=== PATIENT | female | born 1945 | race Caucasian/White ===

== ENCOUNTER 2016-10-28 11:25 | Inpatient (IN) | payer MEDICARE ==
[2016-10-28] MEDS ORDERED: Diltiazem 100 MG AdvVial ONE (11:34)
[2016-10-28] MEDS ORDERED: Sodium Chloride 0.9% 100 ML ONE (11:35)
[2016-10-28] MEDS ORDERED: Diltiazem 25 MG/5 ML SDV ONE (11:37)
[2016-10-28] MEDS ORDERED: Diltiazem 25 MG/5 ML SDV IVPUSH ONE (11:50)
[2016-10-28] MEDS ORDERED: Diltiazem 100 MG in Sodium Chloride 0.9% 100 ML IV SCH (11:53)
[2016-10-28 12:00] LABS: CHLORIDE,CL 106 mEq/L (98-106); SODIUM,NA 144 mEq/L (136-145)
[2016-10-28] MEDS ORDERED: Levofloxacin/Dextrose 5%-Water 500 MG in Premix Bag 1 BAG IV SCH (12:00)
--- NOTE | 2016-10-28 12:05 | EDM.PDOC ---
ED HPI GENERAL MEDICAL PROBLEM - General Chief Complaint: Respiratory Problem Stated Complaint: cough Time Seen by Provider: 10/28/16 12:00 - History of Present Illness INITIAL COMMENTS - FREE TEXT/NARRATIVE: patient presents to ER co of cough and difficulty breathing. EKG show A-fib with RVR of 211. Duration: Hour(s): Location: Reports: Chest Severity: Severe Improves with: Reports: None Worsens with: Reports: None Associated Symptoms: Reports: No Other Symptoms - Related Data Allergies Allergy/AdvReac Type Severity Reaction Status Date / Time clarithromycin [From Biaxin] Allergy Cannot Verified 03/09/15 15:14 Remember codeine phosphate Allergy Cannot Verified 03/09/15 15:14 [From Brontex] Remember guaifenesin [From Brontex] Allergy Cannot Verified 03/09/15 15:14 Remember Penicillins Allergy Rash Verified 03/09/15 15:14 prednisone Allergy Cannot Verified 03/09/15 15:14 Remember Home Meds: Home Meds Albuterol [Proair HFA] 1 - 2 puff INH Q4H PRN 04/21/14 [History] Aspirin [Halfprin] 81 mg PO DAILY 03/09/15 [History] Cholecalciferol (Vitamin D3) [Vitamin D] 1 cap PO DAILY 03/09/15 [History] Multivitamin [Multivitamins] 1 cap PO DAILY 03/09/15 [History] metFORMIN HCl [Metformin HCl ER] 1,000 mg PO DAILY 03/09/15 [History] Estradiol [Estradiol] 0.5 mg PO DAILY 10/28/16 [History] Montelukast Sodium 10 mg PO DAILY 10/28/16 [History] Social & Family History - Tobacco Use Smoking Status *Q: Never Smoker - Recreational Drug Use Recreational Drug Use: No ED ROS GENERAL - Review of Systems Review Of Systems: ROS reveals no pertinent complaints other than HPI. ED EXAM, GENERAL - Physical Exam Exam: See Below Free Text/Narrative:: patient placed on monitor, HR = 211 Afib. Cardiazem 15 mg given slow IV push with cardiazem drip started. HR responds within 5 minutes HR now 115 irregular Exam Limited By: No Limitations General Appearance: Alert, WD/WN Ears: Normal External Exam Nose: Normal Inspection Throat/Mouth: Normal Inspection Head: Atraumatic Neck: Normal Inspection Respiratory/Chest: Crackles, Rales, Rhonchi, Wheezing Cardiovascular: Normal Peripheral Pulses GI/Abdominal: Normal Bowel Sounds (Female) Exam: Normal External Exam Rectal (Female) Exam: Normal Exam Back Exam: Normal Inspection Extremities: Normal Inspection Neurological: Alert, Oriented Psychiatric: Normal Affect Skin Exam: Warm, Dry, Intact Course - Orders/Labs/Meds Orders: Active Orders 24 hr Category Date Time Status Chest 1V Frontal [CR] Stat Exams 10/28/16 11:31 Taken Levofloxacin/Dextrose 5%-Water [Levaquin in D5W 500 MG/ Med 10/28/16 12:00 Ordered 100 ML] 500 mg Premix Bag 1 bag IV Q24H cefTRIAXone [Rocephin] Med 10/28/16 12:00 Ordered 1 gm IVPUSH Q24H Labs: Laboratory Tests 10/28/16 10/28/16 Range/Units 11:31 11:31 WBC 12.7 H (5.0-10.0) 10^3/uL RBC 4.90 (4.00-5.50) 10^6/uL Hgb 14.1 (12.0-16.0) g/dL Hct 43.8 (37.0-47.0) % MCV 89.4 (82.0-94.0) fL MCH 28.8 (27.0-32.0) pg MCHC 32.2 L (33.0-38.0) g/dL RDW Coeff of Pepper 14.6 (11.0-15.0) % Plt Count 299 (150-400) 10^3/uL Neut % (Auto) 81.2 (35-85) % Lymph % (Auto) 11.3 (10-55) % [place] % (Auto) 4.1 (0-16) % Eos % (Auto) 3.2 (0-5) % Baso % (Auto) 0.2 (0-3) % Neut # (Auto) 10.30 H (1.80-7.00) 10^3/uL Lymph # (Auto) 1.44 (1.00-4.80) 10^3/uL [place] # (Auto) 0.52 (0.00-0.80) 10^3/uL Eos # (Auto) 0.40 (0.00-0.45) 10^3/uL Baso # (Auto) 0.03 10^3/uL Sodium 144 (136-145) mEq/L Potassium 4.0 (3.5-5.0) mEq/L Chloride 106 (98-106) mEq/L Carbon Dioxide 26 (21-32) mmol/L BUN 16 (7-18) mg/dL Creatinine 0.9 (0.6-1.0) mg/dL Est Cr Clr Drug Dosing TNP Estimated GFR (MDRD) > 60 (>=60) mL/min Glucose 157 H D (75-99) mg/dL Calcium 9.1 (8.4-10.1) mg/dL Total Bilirubin 0.5 (0.0-1.0) mg/dL AST 19 (15-37) U/L ALT 25 (12-78) U/L Alkaline Phosphatase 89 (46-116) U/L Lactate Dehydrogenase 127 (100-190) U/L Creatine Kinase 71 (21-215) U/L Troponin I 0.041 (0.00-0.06) ng/mL C-Reactive Protein 2.8 H (0.2-0.8) mg/dL Total Protein 7.3 (6.4-8.2) g/dL Albumin 3.6 (3.4-5.0) g/dL Meds: Medications Discontinued Medications Generic Name Dose Route Start Last Admin Trade Name Dre PRN Reason Stop Dose Admin Diltiazem HCl Confirm 10/28/16 11:34 Cardizem Administered 10/28/16 11:35 Dose 100 mg .ROUTE .STK-MED ONE Diltiazem HCl Confirm 10/28/16 11:37 Diltiazem Administered 10/28/16 11:38 Dose 25 mg .ROUTE .STK-MED ONE Sodium Chloride Confirm 10/28/16 11:35 Normal Saline Administered 10/28/16 11:36 Dose 100 mls @ as directed .ROUTE .STK-MED ONE Departure - Departure Time of Disposition: 12:05 Disposition: Admitted As Inpatient 66 Clinical Impression: A-fib, Pneumonia - Discharge Information Forms: ED Department Discharge - My Orders Last 24 Hours: My Active Orders 10/28/16 11:31 Chest 1V Frontal [CR] Stat 10/28/16 12:00 Levofloxacin/Dextrose 5%-Water [Levaquin in D5W 500 MG/100 ML] 500 mg Premix Bag 1 bag IV Q24H cefTRIAXone [Rocephin] 1 gm IVPUSH Q24H - Assessment/Plan Last 24 Hours: My Active Orders 10/28/16 11:31 Chest 1V Frontal [CR] Stat 10/28/16 12:00 Levofloxacin/Dextrose 5%-Water [Levaquin in D5W 500 MG/100 ML] 500 mg Premix Bag 1 bag IV Q24H cefTRIAXone [Rocephin] 1 gm IVPUSH Q24H
[2016-10-28] MEDS: cefTRIAXone 1 GM Vial IVPUSH SCH ×2 (12:15→13:27)
[2016-10-28] MEDS ORDERED: Non-Formulary Medication 1 Each (Cetirizine Hcl [Zyrtec] 10 MG) PO PRN (12:17)
[2016-10-28] MEDS ORDERED: Levalbuterol HCl 1.25 MG/3 ML Neb NEB ONE (12:18)
[2016-10-28] MEDS ORDERED: Metoprolol Tartrate 25 MG Tab PO SCH (12:30)
[2016-10-28] MEDS ORDERED: Enoxaparin 60 MG/0.6 ML Syringe SUBCUT SCH (12:30)
[2016-10-28] MEDS ORDERED: cefTRIAXone 1 GM Vial IVPUSH SCH (12:30)
[2016-10-28] MEDS: Levalbuterol HCl 1.25 MG/3 ML Neb NEB SCH ×3 (13:42→15:40)
[2016-10-28] MEDS ORDERED: Atropine 0.1 MG/ML 10 ML Syringe IVPUSH ONE (14:15)
[2016-10-28] MEDS ORDERED: Ondansetron 4 MG/2 ML SDV ONE (14:51)
[2016-10-28] MEDS ORDERED: Midazolam 1 MG/ML 2 ML SDV ONE (14:55)
[2016-10-28] MEDS: Sodium Chloride 0.9% 1,000 ML IV SCH ×2 (15:00→15:39)
[2016-10-28] MEDS ORDERED: Ondansetron 4 MG/2 ML SDV IVPUSH PRN (15:00)
[2016-10-28] MEDS: DOPamine/Dextrose 5%-Water 400 MG/250 ML BAG ONE ×2 (15:21→17:00)
[2016-10-28] MEDS ORDERED: DOPamine/Dextrose 5%-Water 400 MG/250 ML BAG IV SCH (15:30)
[2016-10-28 15:38] VITALS: BP 88/37
--- NOTE | 2016-10-28 15:46 | PCM.PN ---
- General Info Date of Service: 10/28/16 Admission Dx/Problem (Free Text): Responded to the hospital after nursing found patient badycardic, and then asytsole for a short period. by the time I responded to the hospital the patient was awake and in a junctional rythm of 40 bpm. she was hypotensive at the time. We were unable to capture her HR by external pacer. 0.5 cc atropine given Iv. 700 cc ns given IV bolus. Dopamine drip started at 5 mc/kg.min for b [ support. BP responded quickly to pressers. Patient placed on Non-rebrether O2 sat 88% I spoke with Dr. Amin at [facility] in [place], he agreed to accept patient in transfer for further workup. Arrangements are made for helicopter transer to [place]. Patient is improving, her BP is much better and her HR is now 62bpm. O2 sat at 91%. Functional Status: Reports: pain controlled - Review of Systems General: Reports: No Symptoms HEENT: Reports: no symptoms Pulmonary: Reports: no symptoms Cardiovascular: Reports: No Symptoms Gastrointestinal: Reports: No symptoms Genitourinary: Reports: no symptoms Skin: Reports: no symptoms - Patient Data Vitals - most recent: Last Vital Signs Temp 96.9 F 10/28/16 12:13 Pulse 70 10/28/16 13:41 Resp 16 10/28/16 12:13 BP 129/63 10/28/16 13:41 Pulse Ox 96 10/28/16 12:38 Weight - most recent: 203 lb 6.4 oz Lab Results last 24 hrs: Laboratory Results - last 24 hr 10/28/16 Range/Units 14:50 Troponin I 0.154 H (0.00-0.06) ng/mL Med Orders - Current: Current Medications Ceftriaxone Sodium (Rocephin) 1 gm IVPUSH Q12H [facility] Last Admin: 10/28/16 13:26 Dose: Not Given Enoxaparin Sodium (Lovenox) 60 mg SUBCUT Q12H [facility] Last Admin: 10/28/16 13:41 Dose: 60 mg Levofloxacin/Dextrose 500 mg/ (Premix) 100 mls @ 100 mls/hr IV Q24H [facility] Last Admin: 10/28/16 12:23 Dose: 100 mls/hr Sodium Chloride (Normal Saline) 1,000 mls @ 75 mls/hr IV ASDIRECTED CH[facility]Y Dopamine HCl/Dextrose (Dopamine In D5w 400 Mg/250 Ml) 400 mg in 250 mls @ 17.299 mls/hr IV TITRATE [facility]; 5 MCG/KG/MIN PRN Reason: Protocol Levalbuterol HCl (Xopenex) 1.25 mg NEB Q4H [facility] Last Admin: 10/28/16 13:42 Dose: 1.25 mg Metoprolol Tartrate (Lopressor) 75 mg PO Q12H [facility] Last Admin: 10/28/16 13:41 Dose: 75 mg Montelukast Sodium (Singulair) 10 mg PO DAILY [facility] Non-Formulary Medication (Cetirizine Hcl [Zyrtec]) 10 mg PO DAILY PRN PRN Reason: Allergies Non-Formulary Medication (Estradiol [Estradiol]) 0.5 mg PO DAILY [facility] Non-Formulary Medication (Multivitamin [Multivitamins]) 1 cap PO DAILY [facility] Discontinued Medications Ceftriaxone Sodium (Rocephin) 1 gm IVPUSH Q24H [facility] Diltiazem HCl (Cardizem) Confirm Administered Dose 100 mg .ROUTE .STK-MED ONE Stop: 10/28/16 11:35 Diltiazem HCl (Diltiazem) Confirm Administered Dose 25 mg .ROUTE .STK-MED ONE Stop: 10/28/16 11:38 Sodium Chloride (Normal Saline) Confirm Administered Dose 100 mls @ as directed .ROUTE .STK-MED ONE Stop: 10/28/16 11:36 Dopamine HCl/Dextrose (Dopamine In D5w 400 Mg/250 Ml) Confirm Administered Dose 400 mg in 250 mls @ as directed .ROUTE .STK-MED ONE Stop: 10/28/16 15:22 Levalbuterol HCl (Xopenex) 1.25 mg NEB ONETIME ONE Stop: 10/28/16 12:19 Last Admin: 10/28/16 13:26 Dose: Not Given Midazolam HCl (Versed 1 Mg/Ml) Confirm Administered Dose 2 mg .ROUTE .STK-MED ONE Stop: 10/28/16 14:56 Ondansetron HCl (Zofran) Confirm Administered Dose 4 mg .ROUTE .STK-MED ONE Stop: 10/28/16 14:52 - Problem List Review Problem List Initiated/Reviewed/Updated: Yes - My Orders Last 24 Hours: My Active Orders 10/28/16 12:40 Cardiac Monitoring [RC] . DIRECTED 10/28/16 15:30 DOPamine/Dextrose 5%-Water [DOPamine in D5W 400 MG/250 ML] 400 mg in 250 ml IV TITRATE
--- NOTE | 2016-10-28 19:03 | PCM.DCSUM1 ---
Discharge Summary - Hospital Course Free Text/Narrative:: Patient is to be transferred to [facility] in [place] due to bradycardia, hypotension, and a period of asystole. she will be accepted by Dr. Amin with cardiology and admitted to ICU with a dopamine infusion for bp support. HPI Initial Comments: Patient presented to Er with cough and sob. she was noted to hav a-fib with RVR with a rate of 211. she was treated with IV cardiazem, and her hr stabelized fairly quickly. she was also found to have pneumonia, and antibiotic therapy was started as well. After starting on PO metoprolol the patient converted to a sinut rythnm of 85, and Cardizem drip was D/c. [place]. 30 mnutes later the patient became bradycardic HR=48-50. she was asymptomatic at this time, and her bp was 128/78. About an hour later she decided to get up to use the restroom, and nursing staff states that when she sat up on the side of the bed she became faint and passed out. Cardiac monotor shows that she became bradycardic and went asystole for a short period. when I got to the hospital the patient was awake, HR was 40 junctional, she was awake and responding to commands. She was hypotensive, and was give a fluid bolus of 600 cc. a dpamine infusion was started at 5 mc/kg/min for bp support. Arrangements were then made for transport to [place] via helicopter. Vs are stable at this point HR 67 sr, bp 125/62, O2 sat 90% on NRB. patient denies any pain at this time. Brief History: Pateint initially presented to the Er with cough and SOB, she thought she might have pneumonia. - Discharge Data Discharge Date: 10/28/16 Discharge Disposition: DC/Tfer to Acute Hospital 02 Condition: Stable - Discharge Plan Home Medications: Home Meds Albuterol [Proair HFA] 1 - 2 puff INH Q4H PRN 04/21/14 [History] Aspirin [Halfprin] 81 mg PO DAILY 03/09/15 [History] Cholecalciferol (Vitamin D3) [Vitamin D] 1 cap PO DAILY 03/09/15 [History] Multivitamin [Multivitamins] 1 cap PO DAILY 03/09/15 [History] metFORMIN HCl [Metformin HCl ER] 1,000 mg PO DAILY 03/09/15 [History] Cetirizine HCl [Zyrtec] 10 mg PO DAILY PRN 10/28/16 [History] Estradiol [Estradiol] 0.5 mg PO DAILY 10/28/16 [History] Montelukast Sodium 10 mg PO DAILY 10/28/16 [History] Forms: ED Department Discharge - Patient Data Vitals - Most Recent: Last Vital Signs Temp 96.9 F 10/28/16 12:13 Pulse 48 L 10/28/16 15:23 Resp 30 H 10/28/16 15:23 BP 88/37 L 10/28/16 15:23 Pulse Ox 89 L 10/28/16 15:23 Weight - Most Recent: 203 lb 6.4 oz I&O - Last 24 hours: Intake & Output 10/28/16 10/28/16 10/28/16 06:59 14:59 22:59 Intake Total 0 Balance 0 Lab Results - Last 24 hrs: Laboratory Results - last 24 hr 10/28/16 Range/Units 14:50 Troponin I 0.154 H (0.00-0.06) ng/mL Med Orders - Current: Current Medications Ceftriaxone Sodium (Rocephin) 1 gm IVPUSH Q12H [facility] Last Admin: 10/28/16 13:26 Dose: Not Given Enoxaparin Sodium (Lovenox) 60 mg SUBCUT Q12H [facility] Last Admin: 10/28/16 13:41 Dose: 60 mg Levofloxacin/Dextrose 500 mg/ (Premix) 100 mls @ 100 mls/hr IV Q24H [facility] Last Admin: 10/28/16 12:23 Dose: 100 mls/hr Sodium Chloride (Normal Saline) 1,000 mls @ 75 mls/hr IV ASDIRECTED [facility]Y Last Admin: 10/28/16 15:39 Dose: 75 mls/hr Dopamine HCl/Dextrose (Dopamine In D5w 400 Mg/250 Ml) 400 mg in 250 mls @ 17.299 mls/hr IV TITRATE CHERRY; 5 MCG/KG/MIN PRN Reason: Protocol Last Admin: 10/28/16 15:23 Dose: 5 mcg/kg/min, 17.299 mls/hr Diltiazem HCl 100 mg/ Sodium (Chloride) 100 mls @ 10 mls/hr IV TITRATE CHERRY; 10 MG/HR PRN Reason: Protocol Last Admin: 10/28/16 11:53 Dose: 10 mg/hr, 10 mls/hr Levalbuterol HCl (Xopenex) 1.25 mg NEB Q4H [facility] Last Admin: 10/28/16 15:40 Dose: Not Given Metoprolol Tartrate (Lopressor) 75 mg PO Q12H [facility] Last Admin: 10/28/16 13:41 Dose: 75 mg Montelukast Sodium (Singulair) 10 mg PO DAILY [facility]Y Non-Formulary Medication (Cetirizine Hcl [Zyrtec]) 10 mg PO DAILY PRN PRN Reason: Allergies Non-Formulary Medication (Estradiol [Estradiol]) 0.5 mg PO DAILY [facility] Non-Formulary Medication (Multivitamin [Multivitamins]) 1 cap PO DAILY [facility] Ondansetron HCl (Zofran) 4 mg IVPUSH Q6H PRN PRN Reason: Nausea Last Admin: 10/28/16 15:00 Dose: 4 mg Discontinued Medications Atropine Sulfate (Atropine 0.1 Mg/Ml) 0.5 mg IVPUSH ONETIME ONE Stop: 10/28/16 14:16 Last Admin: 10/28/16 14:16 Dose: 0.5 mg Ceftriaxone Sodium (Rocephin) 1 gm IVPUSH Q24H [facility] Last Admin: 10/28/16 12:15 Dose: 1 gm Diltiazem HCl (Cardizem) Confirm Administered Dose 100 mg .ROUTE .STK-MED ONE Stop: 10/28/16 11:35 Last Admin: 10/28/16 15:24 Dose: Not Given Diltiazem HCl (Diltiazem) Confirm Administered Dose 25 mg .ROUTE .STK-MED ONE Stop: 10/28/16 11:38 Last Admin: 10/28/16 15:24 Dose: Not Given Diltiazem HCl (Diltiazem) 15 mg IVPUSH ONETIME ONE Stop: 10/28/16 11:51 Last Admin: 10/28/16 11:50 Dose: 15 mg Sodium Chloride (Normal Saline) Confirm Administered Dose 100 mls @ as directed .ROUTE .STK-MED ONE Stop: 10/28/16 11:36 Last Admin: 10/28/16 15:22 Dose: 10 ml Dopamine HCl/Dextrose (Dopamine In D5w 400 Mg/250 Ml) Confirm Administered Dose 400 mg in 250 mls @ as directed .ROUTE .STK-MED ONE Stop: 10/28/16 15:22 Last Admin: 10/28/16 17:00 Dose: Not Given Levalbuterol HCl (Xopenex) 1.25 mg NEB ONETIME ONE Stop: 10/28/16 12:19 Last Admin: 10/28/16 13:26 Dose: Not Given Midazolam HCl (Versed 1 Mg/Ml) Confirm Administered Dose 2 mg .ROUTE .STK-MED ONE Stop: 10/28/16 14:56 Last Admin: 10/28/16 15:42 Dose: Not Given Ondansetron HCl (Zofran) Confirm Administered Dose 4 mg .ROUTE .STK-MED ONE Stop: 10/28/16 14:52 Last Admin: 10/28/16 15:43 Dose: Not Given *Q Meaningful Use (DIS) - VTE *Q VTE Criteria *Q: - Stroke *Q Stroke Criteria *Q: - AMI *Q AMI Criteria *Q:
[2016-10-29] MEDS ORDERED: Montelukast 10 MG Tab PO SCH (08:00)
[2016-10-29] MEDS ORDERED: Non-Formulary Medication 1 Each (Multivitamin [Multivitamins] 1 CAP) PO SCH (08:00)
[2016-10-29] MEDS ORDERED: ESTRADIOL 0.5 MG PO SCH (08:00)
== END 2016-10-28 16:20 | DRG 308 ==
LOC: CC.ED 11:25 → CC.MS 12:11 → UNDOADMIN 12:38 → CC.MS 12:38 → UNDODISIN 16:20
PROVIDERS: ADMIT Nurse Practitioner Family; ATTEND Nurse Practitioner Family
DX: I48.91 Unspecified atrial fibrillation (principal); J18.9 Pneumonia, unspecified organism; Z79.82 Long term (current) use of aspirin; Z79.899 Other long term (current) drug therapy; Z88.0 Allergy status to penicillin; Z88.8 Allergy status to other drugs, medicaments and biological substances; R00.1 Bradycardia, unspecified; I95.9 Hypotension, unspecified; I46.9 Cardiac arrest, cause unspecified
CPT/HCPCS: 36415; 71010; 80053; 82550; 83615; 84484; 85025; 86140; 93005; 94640; 96365; 96375; 96376; 99285; J0696; J1956; J7050; 93010; A9270-GY; J0461; J1265; J1650; J2405; J3490; J7030

== ENCOUNTER 2017-03-09 13:05 | Emergency (ER) | payer MEDICARE ==
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
[2017-03-09 13:13] VITALS: BP 162/85
== END 2017-03-09 13:55 | disposition home or self-care (01) ==
LOC: CC.ED 13:05
DX: S80.12XA Contusion of left lower leg, initial encounter (principal); T45.511A Poisoning by anticoagulants, accidental (unintentional), initial encounter; E11.9 Type 2 diabetes mellitus without complications; Z88.1 Allergy status to other antibiotic agents; Z88.5 Allergy status to narcotic agent; Z88.0 Allergy status to penicillin; Z79.82 Long term (current) use of aspirin; Z79.84 Long term (current) use of oral hypoglycemic drugs; Z79.899 Other long term (current) drug therapy; Z79.01 Long term (current) use of anticoagulants; W22.8XXA Striking against or struck by other objects, initial encounter
CPT/HCPCS: 36415; 73590-LT; 85025; 85610; 99283

== ENCOUNTER 2018-11-10 01:33 | Inpatient (IN) | payer MEDICARE ==
[2018-11-10] MEDS ORDERED: Morphine 2 MG/ML Syringe IVPUSH ONE (01:57)
[2018-11-10] MEDS ORDERED: Ondansetron 4 MG/2 ML SDV IVPUSH STA (01:57)
--- NOTE | 2018-11-10 02:02 | EDM.PDOC ---
ED HPI GENERAL MEDICAL PROBLEM - General Chief Complaint: General Stated Complaint: abd pain Time Seen by Provider: 11/10/18 01:51 Source of Information: Reports: Patient History Limitations: Reports: No Limitations - History of Present Illness INITIAL COMMENTS - FREE TEXT/NARRATIVE: This patient is a 73 year old female that presents to the ER. Patient reports that since 5pm having LLQ pain. Patient reports the pain has gradually become worse. Patient reports that she does have history of kidney stones and also diverticulitis in the past that she has had left abdominal pain before. Patient reports this does not feel like kidney stones. Patient reports that for dinner she ate deer sausage yesterday with mustard seeds. Patient reports nausea, but no vomiting. Patient denies CP, SOA. Onset Date: 11/09/18 Onset Time: 17:00 Duration: Getting Worse Location: Reports: Abdomen Quality: Reports: Sharp Severity: Moderate Improves with: Reports: None Worsens with: Reports: None Associated Symptoms: Reports: Nausea/Vomiting. Denies: Confusion, Chest Pain, Cough, cough w sputum, Diaphoresis, Fever/Chills, Headaches, Loss of Appetite, Malaise, Rash, Seizure, Shortness of Breath, Syncope, Weakness Left Lower Abdomen Pain Score (Numeric/FACES): 5 - Related Data Allergies Allergy/AdvReac Type Severity Reaction Status Date / Time clarithromycin [From Biaxin] Allergy Cannot Verified 11/10/18 02:16 Remember codeine [From Brontex] Allergy Hives Verified 11/10/18 02:16 codeine phosphate Allergy Cannot Verified 11/10/18 02:16 [From Brontex] Remember denosumab [From Prolia] Allergy Mouth Sores Verified 11/10/18 02:16 guaifenesin [From Brontex] Allergy Cannot Verified 11/10/18 02:16 Remember levofloxacin Allergy Hives Verified 11/10/18 02:16 Penicillins Allergy Rash Verified 11/10/18 02:16 prednisone Allergy Cannot Verified 11/10/18 02:16 Remember Home Meds: Home Meds Albuterol [Proair HFA] 1 - 2 puff INH Q4H PRN 04/21/14 [History] Aspirin [Halfprin] 81 mg PO DAILY 03/09/15 [History] Cholecalciferol (Vitamin D3) [Vitamin D] 5,000 units PO DAILY 03/09/15 [History] Multivitamin [Multivitamins] 1 cap PO DAILY 03/09/15 [History] Estradiol 0.5 mg PO DAILY 10/28/16 [History] Montelukast Sodium 10 mg PO DAILY 10/28/16 [History] Magnesium Oxide [Magnesium] 500 mg PO DAILY 03/09/17 [History] Rosuvastatin Calcium 10 mg PO DAILY 03/09/17 [History] Fluticasone/Salmeterol [Advair 500-50] 1 inh INH BID 11/10/18 [History] Oxybutynin Chloride [Ditropan Xl] 10 mg PO DAILY 11/10/18 [History] Warfarin [Coumadin] 5 mg PO MOTUWETHFR 11/10/18 [History] Warfarin [Coumadin] 7.5 mg PO SA 11/10/18 [History] Warfarin [Coumadin] 7.5 mg PO DIAZ 11/10/18 [History] glipiZIDE [Glipizide Xl] 10 mg PO BID 11/10/18 [History] metFORMIN [Glucophage XR] 750 mg PO BID 11/10/18 [History] Past Medical History HEENT History: Reports: Impaired Vision Cardiovascular History: Reports: Afib Respiratory History: Reports: Pneumonia, Recurrent Musculoskeletal History: Reports: Osteoporosis Endocrine/Metabolic History: Reports: Diabetes, Type II - Past Surgical History GI Surgical History: Reports: Cholecystectomy Social & Family History - Family History Family Medical History: Noncontributory - Caffeine Use Caffeine Use: Reports: None ED ROS GENERAL - Review of Systems Review Of Systems: See Below Constitutional: Reports: No Symptoms HEENT: Reports: No Symptoms Respiratory: Reports: No Symptoms Cardiovascular: Reports: No Symptoms Endocrine: Reports: No Symptoms GI/Abdominal: Reports: Abdominal Pain, Nausea. Denies: Diarrhea, Vomiting : Reports: No Symptoms Musculoskeletal: Reports: No Symptoms Skin: Reports: No Symptoms Neurological: Reports: No Symptoms Psychiatric: Reports: No Symptoms Hematologic/Lymphatic: Reports: No Symptoms Immunologic: Reports: No Symptoms ED EXAM, GENERAL - Physical Exam Exam: See Below Exam Limited By: No Limitations General Appearance: Alert, WD/WN, No Apparent Distress Eye Exam: Bilateral Eye: Normal Inspection, PERRL Ears: Normal External Exam, Normal Canal, Hearing Grossly Normal, Normal TMs Ear Exam: Bilateral Ear: Auricle Normal, Canal Normal, TM normal Nose: Normal Inspection, Normal Mucosa Throat/Mouth: Normal Inspection, Normal Lips, Normal Teeth, Normal Gums, Normal Oropharynx, Normal Voice, No Airway Compromise Head: Atraumatic, Normocephalic Neck: Normal Inspection, Supple, Non-Tender Respiratory/Chest: No Respiratory Distress, Lungs Clear, Normal Breath Sounds, No Accessory Muscle Use, Chest Non-Tender Cardiovascular: Normal Peripheral Pulses, Regular Rate, Rhythm, No Edema, No Gallop, No JVD, No Murmur, No Rub Peripheral Pulses: 2+: Radial (L), Radial (R), Posterior Tibial (L), Posterior Tibial (R), Dorsalis Pedis (L), Dorsalis Pedis (R) GI/Abdominal: Normal Bowel Sounds, Soft, No Organomegaly, No Distention, No Abnormal Bruit, No Mass, Pelvis Stable, Tender (LLQ). No: Rebound (Female) Exam: Deferred Rectal (Female) Exam: Deferred Back Exam: Normal Inspection, Full Range of Motion, CVA Tenderness (L) Extremities: Normal Inspection, Normal Range of Motion, Non-Tender, No Pedal Edema, Normal Capillary Refill Neurological: Alert, Oriented, Normal Cognition, Normal Gait, No Motor/Sensory Deficits Psychiatric: Normal Affect, Normal Mood Skin Exam: Warm, Dry, Intact, Normal Color, No Rash Lymphatic: No Adenopathy Course - Vital Signs Last Recorded V/S: Last Vital Signs Temp 98.1 F 11/10/18 01:46 Pulse 88 11/10/18 01:46 Resp 18 11/10/18 01:46 BP 189/70 H 11/10/18 01:46 Pulse Ox 98 11/10/18 01:46 - Orders/Labs/Meds Orders: Active Orders 24 hr Category Date Time Status Abdomen Pelvis w Cont [CT] Stat Exams 11/10/18 02:07 Taken Sodium Chloride 0.9% [Normal Saline] 500 ml Med 11/10/18 02:15 Active IV .BOLUS Medication Orders Sodium Chloride (Normal Saline) 500 mls @ 500 mls/hr IV .BOLUS CHERRY Last Admin: 11/10/18 02:13 Dose: 500 mls/hr Labs: Laboratory Tests 11/10/18 11/10/18 11/10/18 Range/Units 01:46 01:50 01:50 WBC 12.3 H (5.0-10.0) 10^3/uL RBC 4.64 (4.00-5.50) 10^6/uL Hgb 13.0 (12.0-16.0) g/dL Hct 40.4 (37.0-47.0) % MCV 87.1 (82.0-94.0) fL MCH 28.0 (27.0-32.0) pg MCHC 32.2 L (33.0-38.0) g/dL RDW Coeff of Pepper 14.9 (11.0-15.0) % Plt Count 295 (150-400) 10^3/uL Neut % (Auto) 85.1 H (35-85) % Lymph % (Auto) 8.8 L (10-55) % [place] % (Auto) 5.2 (0-16) % Eos % (Auto) 0.7 (0-5) % Baso % (Auto) 0.2 (0-3) % Neut # (Auto) 10.51 H (1.80-7.00) 10^3/uL Lymph # (Auto) 1.08 (1.00-4.80) 10^3/uL [place] # (Auto) 0.64 (0.00-0.80) 10^3/uL Eos # (Auto) 0.09 (0.00-0.45) 10^3/uL Baso # (Auto) 0.02 10^3/uL PT 30.7 H (9.7-12.3) SEC INR 3.18 H (0.92-1.18) Sodium (136-145) mEq/L Potassium (3.5-5.0) mEq/L Chloride (98-106) mEq/L Carbon Dioxide (21-32) mmol/L BUN (7-18) mg/dL Creatinine (0.6-1.0) mg/dL Est Cr Clr Drug Dosing mL/min Estimated GFR (MDRD) (>=60) mL/min Glucose (75-99) mg/dL Calcium (8.4-10.1) mg/dL Total Bilirubin (0.0-1.0) mg/dL AST (15-37) U/L ALT (12-78) U/L Alkaline Phosphatase (46-116) U/L Total Protein (6.4-8.2) g/dL Albumin (3.4-5.0) g/dL Amylase (25-115) U/L Lipase (73-393) U/L Urine Color Yellow (YELLOW) Urine Appearance Clear (CLEAR) Urine pH 5.0 (4.5-8.0) Ur Specific [place] 1.020 (1.003-1.020) Urine Protein Negative (NEGATIVE) mg/dL Urine Glucose (UA) Negative (NEGATIVE) mg/dL Urine Ketones Negative (NEGATIVE) mg/dL Urine Occult Blood Negative (NEGATIVE) Urine Nitrite Negative (NEGATIVE) Urine Bilirubin Negative (NEGATIVE) Urine Urobilinogen 0.2 (0.2-1.0) EU/dL Ur Leukocyte Esterase Negative (NEGATIVE) 11/10/18 Range/Units 01:50 WBC (5.0-10.0) 10^3/uL RBC (4.00-5.50) 10^6/uL Hgb (12.0-16.0) g/dL Hct (37.0-47.0) % MCV (82.0-94.0) fL MCH (27.0-32.0) pg MCHC (33.0-38.0) g/dL RDW Coeff of Pepper (11.0-15.0) % Plt Count (150-400) 10^3/uL Neut % (Auto) (35-85) % Lymph % (Auto) (10-55) % [place] % (Auto) (0-16) % Eos % (Auto) (0-5) % Baso % (Auto) (0-3) % Neut # (Auto) (1.80-7.00) 10^3/uL Lymph # (Auto) (1.00-4.80) 10^3/uL [place] # (Auto) (0.00-0.80) 10^3/uL Eos # (Auto) (0.00-0.45) 10^3/uL Baso # (Auto) 10^3/uL PT (9.7-12.3) SEC INR (0.92-1.18) Sodium 141 (136-145) mEq/L Potassium 4.2 (3.5-5.0) mEq/L Chloride 103 (98-106) mEq/L Carbon Dioxide 28 (21-32) mmol/L BUN 26 H D (7-18) mg/dL Creatinine 0.9 (0.6-1.0) mg/dL Est Cr Clr Drug Dosing 44.03 mL/min Estimated GFR (MDRD) > 60 (>=60) mL/min Glucose 133 H (75-99) mg/dL Calcium 9.2 (8.4-10.1) mg/dL Total Bilirubin 0.3 (0.0-1.0) mg/dL AST 17 (15-37) U/L ALT 21 (12-78) U/L Alkaline Phosphatase 87 (46-116) U/L Total Protein 7.0 (6.4-8.2) g/dL Albumin 3.6 (3.4-5.0) g/dL Amylase 41 (25-115) U/L Lipase 111 (73-393) U/L Urine Color (YELLOW) Urine Appearance (CLEAR) Urine pH (4.5-8.0) Ur Specific [place] (1.003-1.020) Urine Protein (NEGATIVE) mg/dL Urine Glucose (UA) (NEGATIVE) mg/dL Urine Ketones (NEGATIVE) mg/dL Urine Occult Blood (NEGATIVE) Urine Nitrite (NEGATIVE) Urine Bilirubin (NEGATIVE) Urine Urobilinogen (0.2-1.0) EU/dL Ur Leukocyte Esterase (NEGATIVE) Meds: Medications Generic Name Dose Route Start Last Admin Trade Name Freq PRN Reason Stop Dose Admin Sodium Chloride 500 mls @ 500 mls/hr 11/10/18 02:15 11/10/18 02:13 Normal Saline IV 500 mls/hr .BOLUS CHERRY Administration Discontinued Medications Generic Name Dose Route Start Last Admin Trade Name Freq PRN Reason Stop Dose Admin Iopamidol 160 ml 11/10/18 02:14 11/10/18 02:29 Isovue-370 (76%) IV 11/10/18 02:15 120 ml ONETIME ONE Administration Morphine Sulfate 2 mg 11/10/18 01:57 11/10/18 02:07 Morphine IVPUSH 11/10/18 01:58 2 mg ONETIME ONE Administration Ondansetron HCl 4 mg 11/10/18 01:57 11/10/18 02:07 Zofran IVPUSH 11/10/18 01:58 4 mg NOW STA Administration - Radiology Interpretation Free Text/Narrative:: CT ABD/PELVIS with contrast: Discussed with radiologist. Acute diverticulitis with small contained non perforated abscess sigmoid colon. Very small abscess, not large enough to drain. Also, incidental lesion left kidney, recommend out patient US. CT Results Date: 11/10/18 CT Results Time: 03:00 - Re-Assessments/Exams Free Text/Narrative Re-Assessment/Exam: 11/10/18 02:09 LLQ pain, tenderness. Elevated wbc. Hx diverticulitis, will ct abd/pelvis with contrast. 11/10/18 03:[address] is not large enough to drain. Will not transfer, will treat at this time with IV abx. Departure - Departure Time of Disposition: 03:10 Disposition: Admitted As Inpatient 66 Condition: Fair Clinical Impression: Diverticulitis of sigmoid colon, Abscess of sigmoid colon due to diverticulitis - Discharge Information *PRESCRIPTION DRUG MONITORING PROGRAM REVIEWED*: No *COPY OF PRESCRIPTION DRUG MONITORING REPORT IN PATIENT KATEY: No Referrals: Jerome Riddle, CALLIE [Primary Care Provider] - Forms: ED Department Discharge - My Orders Last 24 Hours: My Active Orders 11/10/18 02:07 Abdomen Pelvis w Cont [CT] Stat 11/10/18 02:15 Sodium Chloride 0.9% [Normal Saline] 500 ml IV .BOLUS - Assessment/Plan Last 24 Hours: My Active Orders 11/10/18 02:07 Abdomen Pelvis w Cont [CT] Stat 11/10/18 02:15 Sodium Chloride 0.9% [Normal Saline] 500 ml IV .BOLUS Plan: PLEASE SEE RN NOTE FOR PFSH. PLEASE USE ER H&P ADMIT H&P.
[2018-11-10 02:04] LABS: CHLORIDE,CL 103 mEq/L (98-106); SODIUM,NA 141 mEq/L (136-145)
[2018-11-10] MEDS ORDERED: Iopamidol 755 Mg/ML 200 ML Bottle IV ONE (02:14)
[2018-11-10] MEDS ORDERED: Sodium Chloride 0.9% 500 ML IV SCH (02:15)
[2018-11-10] MEDS ORDERED: Morphine 2 MG/ML Syringe IVPUSH PRN (03:50)
[2018-11-10] MEDS ORDERED: Albuterol 8 GM Inhaler INH PRN (03:50)
[2018-11-10] MEDS ORDERED: Ondansetron 4 MG/2 ML SDV IV PRN (03:50)
[2018-11-10] MEDS ORDERED: Warfarin 5 MG Tab PO SCH ×2 (03:50→12:00)
[2018-11-10] MEDS ORDERED: cefTRIAXone 1 GM Vial IVPUSH SCH (04:00)
[2018-11-10] MEDS ORDERED: diphenhydrAMINE 50 MG/ML SDV IVPUSH ONE (04:56)
[2018-11-10] MEDS: metroNIDAZOLE/Normal Saline 500 MG in Premix Bag 1 BAG IV SCH ×3 (04:57→19:57)
[2018-11-10] MEDS: Multivitamin Tab PO SCH (08:17)
[2018-11-10] MEDS: Cholecalciferol (Vitamin D3) 25 MCG Tab PO SCH (08:17)
[2018-11-10] MEDS: glipiZIDE 5 MG Tab.ER PO SCH ×2 (08:17→19:54)
[2018-11-10] MEDS: Aspirin 81 MG Tab.EC PO SCH (08:17)
[2018-11-10] MEDS: Oxybutynin 5 MG Tab.ER PO SCH (08:17)
[2018-11-10] MEDS: Estradiol 1 MG Tab PO SCH (08:17)
[2018-11-10] MEDS: Formoterol/Mometasone 200-5 MCG 8.8 GM Inhaler IH SCH ×2 (08:22→19:57)
[2018-11-10] MEDS: Sodium Chloride 0.9% 1,000 ML IV SCH (11:13)
[2018-11-10] MEDS: Ibuprofen 200 MG Tab PO PRN ×2 (13:24→20:51)
[2018-11-10] MEDS: Simvastatin 40 MG Tab PO SCH (19:55)
[2018-11-10] MEDS: Montelukast 10 MG Tab PO SCH (19:55)
[2018-11-11] MEDS: Sodium Chloride 0.9% 1,000 ML IV SCH ×2 (03:19→18:50)
[2018-11-11] MEDS: metroNIDAZOLE/Normal Saline 500 MG in Premix Bag 1 BAG IV SCH ×3 (03:19→20:22)
[2018-11-11] MEDS: Formoterol/Mometasone 200-5 MCG 8.8 GM Inhaler IH SCH ×2 (07:42→20:20)
[2018-11-11] MEDS: Cholecalciferol (Vitamin D3) 25 MCG Tab PO SCH (07:42)
[2018-11-11] MEDS: glipiZIDE 5 MG Tab.ER PO SCH ×2 (07:42→19:28)
[2018-11-11] MEDS: Multivitamin Tab PO SCH (07:42)
[2018-11-11] MEDS: Aspirin 81 MG Tab.EC PO SCH (07:43)
[2018-11-11] MEDS: Oxybutynin 5 MG Tab.ER PO SCH (07:43)
[2018-11-11] MEDS: Estradiol 1 MG Tab PO SCH (07:49)
[2018-11-11 08:02] LABS: CHLORIDE,CL 106 mEq/L (98-106); SODIUM,NA 141 mEq/L (136-145)
--- NOTE | 2018-11-11 09:26 | PCM.PN ---
- General Info Date of Service: 11/11/18 Admission Dx/Problem (Free Text): Diverticulitis Functional Status: Reports: Pain Controlled, Tolerating Diet (tolerated jello this am, states less nauseated today), Ambulating - Review of Systems General: Reports: Fever, Fatigue, Malaise HEENT: Reports: No Symptoms Pulmonary: Denies: Shortness of Breath, Cough Cardiovascular: Denies: Chest Pain, Edema, Lightheadedness Gastrointestinal: Reports: Abdominal Pain, Flatus. Denies: Nausea, Vomiting Genitourinary: Reports: No Symptoms Musculoskeletal: Reports: No Symptoms Skin: Reports: No Symptoms Neurological: Reports: No Symptoms - Patient Data Vitals - Most Recent: Last Vital Signs Temp 98 F 11/11/18 07:47 Pulse 68 11/11/18 07:47 Resp 16 11/11/18 07:47 BP 111/49 L 11/11/18 07:47 Pulse Ox 94 L 11/11/18 07:47 Weight - Most Recent: 194 lb I&O - Last 24 Hours: Intake & Output 11/10/18 11/11/18 11/11/18 22:59 06:59 14:59 Intake Total 100 1000 Balance 100 1000 Lab Results Last 24 Hours: Laboratory Results - last 24 hr 11/10/18 11/10/18 11/11/18 Range/Units 11:53 16:48 07:20 WBC 11.7 H (5.0-10.0) 10^3/uL RBC 4.38 (4.00-5.50) 10^6/uL Hgb 12.2 (12.0-16.0) g/dL Hct 38.6 (37.0-47.0) % MCV 88.1 (82.0-94.0) fL MCH 27.9 (27.0-32.0) pg MCHC 31.6 L (33.0-38.0) g/dL RDW Coeff of Pepper 15.3 H (11.0-15.0) % Plt Count 247 (150-400) 10^3/uL Neut % (Auto) 85.0 (35-85) % Lymph % (Auto) 8.7 L (10-55) % [place] % (Auto) 5.8 (0-16) % Eos % (Auto) 0.4 (0-5) % Baso % (Auto) 0.1 (0-3) % Neut # (Auto) 9.91 H (1.80-7.00) 10^3/uL Lymph # (Auto) 1.01 (1.00-4.80) 10^3/uL [place] # (Auto) 0.68 (0.00-0.80) 10^3/uL Eos # (Auto) 0.05 (0.00-0.45) 10^3/uL Baso # (Auto) 0.01 10^3/uL PT (9.7-12.3) SEC INR (0.92-1.18) Sodium (136-145) mEq/L Potassium (3.5-5.0) mEq/L Chloride (98-106) mEq/L Carbon Dioxide (21-32) mmol/L BUN (7-18) mg/dL Creatinine (0.6-1.0) mg/dL Est Cr Clr Drug Dosing mL/min Estimated GFR (MDRD) (>=60) mL/min Glucose (75-99) mg/dL POC Glucose 138 H 138 H (75-105) mg/dl Calcium (8.4-10.1) mg/dL C-Reactive Protein (0.2-0.8) mg/dL 11/11/18 11/11/18 11/11/18 Range/Units 07:20 07:20 07:39 WBC (5.0-10.0) 10^3/uL RBC (4.00-5.50) 10^6/uL Hgb (12.0-16.0) g/dL Hct (37.0-47.0) % MCV (82.0-94.0) fL MCH (27.0-32.0) pg MCHC (33.0-38.0) g/dL RDW Coeff of Pepper (11.0-15.0) % Plt Count (150-400) 10^3/uL Neut % (Auto) (35-85) % Lymph % (Auto) (10-55) % [place] % (Auto) (0-16) % Eos % (Auto) (0-5) % Baso % (Auto) (0-3) % Neut # (Auto) (1.80-7.00) 10^3/uL Lymph # (Auto) (1.00-4.80) 10^3/uL [place] # (Auto) (0.00-0.80) 10^3/uL Eos # (Auto) (0.00-0.45) 10^3/uL Baso # (Auto) 10^3/uL PT 34.7 H (9.7-12.3) SEC INR 3.62 H (0.92-1.18) Sodium 141 (136-145) mEq/L Potassium 3.6 (3.5-5.0) mEq/L Chloride 106 (98-106) mEq/L Carbon Dioxide 28 (21-32) mmol/L BUN 11 D (7-18) mg/dL Creatinine 0.7 (0.6-1.0) mg/dL Est Cr Clr Drug Dosing 56.61 mL/min Estimated GFR (MDRD) > 60 (>=60) mL/min Glucose 61 L D (75-99) mg/dL POC Glucose 57 L (75-105) mg/dl Calcium 8.1 L (8.4-10.1) mg/dL C-Reactive Protein 19.6 H (0.2-0.8) mg/dL Med Orders - Current: Current Medications Albuterol (Ventolin Hfa) 1 - 2 gm INH Q4H PRN PRN Reason: Allergies Aspirin (Halfprin) 81 mg PO DAILY [facility] Last Admin: 11/11/18 07:43 Dose: 81 mg Cholecalciferol (Vitamin D3) 125 mcg PO DAILY [facility] Last Admin: 11/11/18 07:42 Dose: 125 mcg Estradiol (Estradiol) 0.5 mg PO DAILY [facility] Last Admin: 11/11/18 07:49 Dose: 0.5 mg Glipizide (Glucotrol Xl) 10 mg PO BID [facility] Last Admin: 11/11/18 07:42 Dose: 10 mg Sodium Chloride (Normal Saline) 500 mls @ 500 mls/hr IV .BOLUS [facility] Last Admin: 11/10/18 02:13 Dose: 500 mls/hr Metronidazole 500 mg/ Premix 100 mls @ 100 mls/hr IV Q8H [facility] Last Admin: 11/11/18 03:19 Dose: 100 mls/hr Sodium Chloride (Normal Saline) 1,000 mls @ 75 mls/hr IV ASDIRECTED [facility] Last Admin: 11/11/18 03:19 Dose: 75 mls/hr Meropenem 1 gm/ Sodium (Chloride) 60 mls @ 120 mls/hr IV BID [facility] Last Admin: 11/11/18 07:43 Dose: 120 mls/hr Ibuprofen (Motrin) 400 mg PO Q6H PRN PRN Reason: Fever Last Admin: 11/10/18 20:51 Dose: 400 mg Magnesium Oxide (Magnesium Oxide) 500 mg PO DAILY [facility] Last Admin: 11/11/18 07:42 Dose: 500 mg Mometasone Furoate/Formoterol Fumar (Dulera 200-5 Mcg) 2 puff IH BID [facility] Last Admin: 11/11/18 07:42 Dose: 2 puff Montelukast Sodium (Singulair) 10 mg PO BEDTIME [facility] Last Admin: 11/10/18 19:55 Dose: 10 mg Morphine Sulfate (Morphine) 2 mg IVPUSH Q2H PRN PRN Reason: Pain (severe 7-10) Multivitamins/Minerals/Vitamin C (Tab-A-Anthony) 1 tab PO DAILY [facility] Last Admin: 11/11/18 07:42 Dose: 1 tab Ondansetron HCl (Zofran) 4 mg IV Q6H PRN PRN Reason: Nausea/Vomiting Oxybutynin Chloride (Oxybutynin Er) 10 mg PO DAILY [facility] Last Admin: 11/11/18 07:43 Dose: 10 mg Simvastatin (Zocor) 40 mg PO BEDTIME [facility] Last Admin: 11/10/18 19:55 Dose: 40 mg Warfarin Sodium (Coumadin) 5 mg PO DAILY@1200 [facility] Last Admin: 11/10/18 13:24 Dose: 5 mg Discontinued Medications Ceftriaxone Sodium (Rocephin) 1 gm IVPUSH Q24H [facility] Last Admin: 11/10/18 04:56 Dose: 1 gm Diphenhydramine HCl (Benadryl) 12.5 mg IVPUSH ONETIME ONE Stop: 11/10/18 04:57 Last Admin: 11/10/18 05:10 Dose: 12.5 mg Iopamidol (Isovue-370 (76%)) 160 ml IV ONETIME ONE Stop: 11/10/18 02:15 Last Admin: 11/10/18 02:29 Dose: 120 ml Morphine Sulfate (Morphine) 2 mg IVPUSH ONETIME ONE Stop: 11/10/18 01:58 Last Admin: 11/10/18 02:07 Dose: 2 mg Non-Formulary Medication (Warfarin) 7.5 mg PO DIAZ [facility] Ondansetron HCl (Zofran) 4 mg IVPUSH NOW STA Stop: 11/10/18 01:58 Last Admin: 11/10/18 02:07 Dose: 4 mg Warfarin Sodium (Coumadin) 5 mg PO MOTUWETHFR [facility] Last Admin: 11/10/18 19:18 Dose: Not Given Warfarin Sodium (Coumadin) 7.5 mg PO SuSa@1200 [facility] - Exam General: Alert, Oriented HEENT: Mucous Membr. Moist/[place] Neck: Supple Lungs: Clear to Auscultation, Normal Respiratory Effort Cardiovascular: Regular Rate, Regular Rhythm GI/Abdominal Exam: Normal Bowel Sounds, Soft, Tender (LLQ) Extremities: Normal Inspection, No Pedal Edema Skin: Warm, Dry Neurological: No New Focal Deficit - Problem List & Annotations (1) Abscess of sigmoid colon due to diverticulitis SNOMED Code(s): 1040672469066671 Code(s): K57.20 - DVTRCLI OF LG INT W PERFORATION AND ABSCESS W/O BLEEDING Status: Acute Priority: High Current Visit: Yes - Problem List Review Problem List Initiated/Reviewed/Updated: Yes - My Orders Last 24 Hours: My Active Orders 11/10/18 09:30 Sodium Chloride 0.9% [Normal Saline] 1,000 ml IV ASDIRECTED 11/10/18 12:00 Meropenem [Merrem] 1 gm Sodium Chloride 0.9% [Normal Saline] 50 ml IV BID Warfarin [Coumadin] 5 mg PO DAILY@1200 11/11/18 Lunch Advance Diet Instructions [DIET] - Assessment Assessment:: LLQ Sigmoid Abscess due to Diverticulitis - Plan Plan:: Patient is better today, feels less pain and nausea. She did tolerate her clear liquids for breakfast this am. Temps improved to low grade today, 99.5. WBC 11.7, CRP 19.6. INR is high today yet at 3.62, will hold Coumadin today. Ambulated in halls last evening. Admits to feeling less bloated, passing flatus now. Merepenum added yesterday and patient tolerated well. Continued with flagyl. Will advance diet today, full liquids to soft as tolerated. Continue IV antibiotics. Repeat labs in am.
[2018-11-11] MEDS: Ibuprofen 200 MG Tab PO PRN ×2 (10:53→19:31)
[2018-11-11] MEDS: Acetaminophen 325 MG Tab PO PRN (16:15)
[2018-11-11] MEDS: Simvastatin 40 MG Tab PO SCH (19:27)
[2018-11-11] MEDS: Montelukast 10 MG Tab PO SCH (19:28)
[2018-11-12] MEDS: metroNIDAZOLE/Normal Saline 500 MG in Premix Bag 1 BAG IV SCH ×3 (03:58→19:38)
[2018-11-12] MEDS: glipiZIDE 5 MG Tab.ER PO SCH ×2 (07:47→19:37)
[2018-11-12] MEDS: Oxybutynin 5 MG Tab.ER PO SCH (07:47)
[2018-11-12] MEDS: Aspirin 81 MG Tab.EC PO SCH (07:48)
[2018-11-12] MEDS: Multivitamin Tab PO SCH (07:48)
[2018-11-12] MEDS: Cholecalciferol (Vitamin D3) 25 MCG Tab PO SCH (07:48)
[2018-11-12] MEDS: Estradiol 1 MG Tab PO SCH (07:48)
[2018-11-12] MEDS: Formoterol/Mometasone 200-5 MCG 8.8 GM Inhaler IH SCH ×2 (07:49→19:38)
[2018-11-12 08:00] LABS: CHLORIDE,CL 109 mEq/L (98-106); SODIUM,NA 142 mEq/L (136-145)
--- NOTE | 2018-11-12 09:12 | PCM.PN ---
- General Info Date of Service: 11/12/18 Admission Dx/Problem (Free Text): Diverticulitis Functional Status: Reports: Pain Controlled, Tolerating Diet, Ambulating - Review of Systems General: Reports: Fatigue, Malaise HEENT: Reports: No Symptoms Pulmonary: Reports: Shortness of Breath Cardiovascular: Denies: Chest Pain, Edema, Lightheadedness Gastrointestinal: Reports: Abdominal Pain, Flatus. Denies: Nausea, Vomiting Genitourinary: Reports: No Symptoms Musculoskeletal: Reports: No Symptoms Skin: Reports: No Symptoms Neurological: Reports: No Symptoms - Patient Data Vitals - Most Recent: Last Vital Signs Temp 98.8 F 11/12/18 08:00 Pulse 71 11/12/18 08:00 Resp 18 11/12/18 08:00 BP 128/56 L 11/12/18 08:00 Pulse Ox 97 11/12/18 08:00 Weight - Most Recent: 194 lb I&O - Last 24 Hours: Intake & Output 11/11/18 11/12/18 11/12/18 22:59 06:59 14:59 Intake Total 1100 Balance 1100 Lab Results Last 24 Hours: Laboratory Results - last 24 hr 11/11/18 11/12/18 11/12/18 Range/Units 11:31 07:00 07:00 WBC 10.8 H (5.0-10.0) 10^3/uL RBC 3.85 L (4.00-5.50) 10^6/uL Hgb 10.8 L (12.0-16.0) g/dL Hct 34.3 L (37.0-47.0) % MCV 89.1 (82.0-94.0) fL MCH 28.1 (27.0-32.0) pg MCHC 31.5 L (33.0-38.0) g/dL RDW Coeff of Pepper 14.9 (11.0-15.0) % Plt Count 233 (150-400) 10^3/uL Neut % (Auto) 86.0 H (35-85) % Lymph % (Auto) 7.0 L (10-55) % [place] % (Auto) 6.1 (0-16) % Eos % (Auto) 0.8 (0-5) % Baso % (Auto) 0.1 (0-3) % Neut # (Auto) 9.30 H (1.80-7.00) 10^3/uL Lymph # (Auto) 0.76 L (1.00-4.80) 10^3/uL [place] # (Auto) 0.66 (0.00-0.80) 10^3/uL Eos # (Auto) 0.09 (0.00-0.45) 10^3/uL Baso # (Auto) 0.01 10^3/uL PT 26.9 H (9.7-12.3) SEC INR 2.77 H (0.92-1.18) Sodium (136-145) mEq/L Potassium (3.5-5.0) mEq/L Chloride (98-106) mEq/L Carbon Dioxide (21-32) mmol/L BUN (7-18) mg/dL Creatinine (0.6-1.0) mg/dL Est Cr Clr Drug Dosing mL/min Estimated GFR (MDRD) (>=60) mL/min Glucose (75-99) mg/dL POC Glucose 101 (75-105) mg/dl Calcium (8.4-10.1) mg/dL C-Reactive Protein (0.2-0.8) mg/dL 11/12/18 11/12/18 Range/Units 07:00 08:04 WBC (5.0-10.0) 10^3/uL RBC (4.00-5.50) 10^6/uL Hgb (12.0-16.0) g/dL Hct (37.0-47.0) % MCV (82.0-94.0) fL MCH (27.0-32.0) pg MCHC (33.0-38.0) g/dL RDW Coeff of Pepper (11.0-15.0) % Plt Count (150-400) 10^3/uL Neut % (Auto) (35-85) % Lymph % (Auto) (10-55) % [place] % (Auto) (0-16) % Eos % (Auto) (0-5) % Baso % (Auto) (0-3) % Neut # (Auto) (1.80-7.00) 10^3/uL Lymph # (Auto) (1.00-4.80) 10^3/uL [place] # (Auto) (0.00-0.80) 10^3/uL Eos # (Auto) (0.00-0.45) 10^3/uL Baso # (Auto) 10^3/uL PT (9.7-12.3) SEC INR (0.92-1.18) Sodium 142 (136-145) mEq/L Potassium 4.2 (3.5-5.0) mEq/L Chloride 109 H (98-106) mEq/L Carbon Dioxide 28 (21-32) mmol/L BUN 10 (7-18) mg/dL Creatinine 0.7 (0.6-1.0) mg/dL Est Cr Clr Drug Dosing 56.61 mL/min Estimated GFR (MDRD) > 60 (>=60) mL/min Glucose 123 H D (75-99) mg/dL POC Glucose 109 H (75-105) mg/dl Calcium 7.9 L (8.4-10.1) mg/dL C-Reactive Protein 20.4 H (0.2-0.8) mg/dL Med Orders - Current: Current Medications Acetaminophen (Tylenol) 650 mg PO Q4H PRN PRN Reason: Fever Last Admin: 11/11/18 16:15 Dose: 650 mg Albuterol (Ventolin Hfa) 1 - 2 gm INH Q4H PRN PRN Reason: Allergies Aspirin (Halfprin) 81 mg PO DAILY [facility] Last Admin: 11/12/18 07:48 Dose: 81 mg Cholecalciferol (Vitamin D3) 125 mcg PO DAILY [facility] Last Admin: 11/12/18 07:48 Dose: 125 mcg Estradiol (Estradiol) 0.5 mg PO DAILY [facility] Last Admin: 11/12/18 07:48 Dose: 0.5 mg Glipizide (Glucotrol Xl) 10 mg PO BID [facility] Last Admin: 11/12/18 07:47 Dose: 10 mg Sodium Chloride (Normal Saline) 500 mls @ 500 mls/hr IV .BOLUS [facility] Last Admin: 11/10/18 02:13 Dose: 500 mls/hr Metronidazole 500 mg/ Premix 100 mls @ 100 mls/hr IV Q8H [facility] Last Admin: 11/12/18 03:58 Dose: 100 mls/hr Meropenem 1 gm/ Sodium (Chloride) 60 mls @ 120 mls/hr IV BID [facility] Last Admin: 11/12/18 07:49 Dose: 120 mls/hr Ibuprofen (Motrin) 400 mg PO Q6H PRN PRN Reason: Fever Last Admin: 11/11/18 19:31 Dose: 400 mg Magnesium Oxide (Magnesium Oxide) 500 mg PO DAILY [facility] Last Admin: 11/12/18 07:47 Dose: 500 mg Mometasone Furoate/Formoterol Fumar (Dulera 200-5 Mcg) 2 puff IH BID [facility] Last Admin: 11/12/18 07:49 Dose: 2 puff Montelukast Sodium (Singulair) 10 mg PO BEDTIME [facility] Last Admin: 11/11/18 19:28 Dose: 10 mg Morphine Sulfate (Morphine) 2 mg IVPUSH Q2H PRN PRN Reason: Pain (severe 7-10) Multivitamins/Minerals/Vitamin C (Tab-A-Anthony) 1 tab PO DAILY [facility] Last Admin: 11/12/18 07:48 Dose: 1 tab Ondansetron HCl (Zofran) 4 mg IV Q6H PRN PRN Reason: Nausea/Vomiting Oxybutynin Chloride (Oxybutynin Er) 10 mg PO DAILY [facility] Last Admin: 11/12/18 07:47 Dose: 10 mg Simvastatin (Zocor) 40 mg PO BEDTIME [facility] Last Admin: 11/11/18 19:27 Dose: 40 mg Warfarin Sodium (Coumadin) 5 mg PO DAILY@1200 [facility] Last Admin: 11/10/18 13:24 Dose: 5 mg Discontinued Medications Ceftriaxone Sodium (Rocephin) 1 gm IVPUSH Q24H [facility] Last Admin: 11/10/18 04:56 Dose: 1 gm Diphenhydramine HCl (Benadryl) 12.5 mg IVPUSH ONETIME ONE Stop: 11/10/18 04:57 Last Admin: 11/10/18 05:10 Dose: 12.5 mg Sodium Chloride (Normal Saline) 1,000 mls @ 75 mls/hr IV ASDIRECTED [facility] Last Admin: 11/11/18 18:50 Dose: 75 mls/hr Iopamidol (Isovue-370 (76%)) 160 ml IV ONETIME ONE Stop: 11/10/18 02:15 Last Admin: 11/10/18 02:29 Dose: 120 ml Morphine Sulfate (Morphine) 2 mg IVPUSH ONETIME ONE Stop: 11/10/18 01:58 Last Admin: 11/10/18 02:07 Dose: 2 mg Non-Formulary Medication (Warfarin) 7.5 mg PO [facility] Ondansetron HCl (Zofran) 4 mg IVPUSH NOW STA Stop: 11/10/18 01:58 Last Admin: 11/10/18 02:07 Dose: 4 mg Warfarin Sodium (Coumadin) 5 mg PO MOTUWETHFR [facility] Last Admin: 11/10/18 19:18 Dose: Not Given Warfarin Sodium (Coumadin) 7.5 mg PO SuSa@1200 [facility] - Exam General: Alert, Oriented HEENT: Mucous Membr. Moist/[place] Neck: Supple Lungs: Clear to Auscultation, Normal Respiratory Effort Cardiovascular: Regular Rate, Regular Rhythm GI/Abdominal Exam: Normal Bowel Sounds, Soft, Tender (LLQ discomfort, but improved from yesterday) Extremities: Normal Inspection, No Pedal Edema Skin: Warm, Dry Neurological: No New Focal Deficit - Problem List & Annotations (1) Abscess of sigmoid colon due to diverticulitis SNOMED Code(s): 6367263967777215 Code(s): K57.20 - DVTRCLI OF LG INT W PERFORATION AND ABSCESS W/O BLEEDING Status: Acute Priority: High Current Visit: Yes - Problem List Review Problem List Initiated/Reviewed/Updated: Yes - My Orders Last 24 Hours: My Active Orders 11/11/18 Lunch Advance Diet Instructions [DIET] 11/12/18 Breakfast Consistent Carbohydrate Diet [DIET] - Assessment Assessment:: LLQ Sigmoid Abscess due to Diverticulitis - Plan Plan:: Patient is better today, feels less pain and nausea. She did tolerate her clear liquids for breakfast this am. Temps improved to low grade today, 99.5. WBC 11.7, CRP 19.6. INR is high today yet at 3.62, will hold Coumadin today. Ambulated in halls last evening. Admits to feeling less bloated, passing flatus now. Merepenum added yesterday and patient tolerated well. Continued with flagyl. Will advance diet today, full liquids to soft as tolerated. Continue IV antibiotics. Repeat labs in am. 11-12-2018 Patient continues to improve. Feeling less and less pain every day. Were able to advance her diet yesterday to soft and has done well. Is passing flatus, no bowel movements as of yet. Afebrile. Ambulating and tolerating well. CRP did increase to 20.4, WBC 10.8. INR now 2.77. Will stop IV fluids. Continue IV antibiotics. Resume Metformin and Coumadin. Repeat labs in am.
[2018-11-12] MEDS: metFORMIN 500 MG Tab.ER PO SCH ×2 (11:18→19:36)
[2018-11-12] MEDS: Warfarin 2.5 MG Tab PO SCH (14:10)
[2018-11-12] MEDS: Acetaminophen 325 MG Tab PO PRN ×2 (17:11→23:09)
[2018-11-12] MEDS: Montelukast 10 MG Tab PO SCH (19:36)
[2018-11-12] MEDS: Simvastatin 40 MG Tab PO SCH (19:36)
[2018-11-13] MEDS: metroNIDAZOLE/Normal Saline 500 MG in Premix Bag 1 BAG IV SCH ×2 (03:06→12:21)
[2018-11-13 07:29] LABS: CHLORIDE,CL 108 mEq/L (98-106); SODIUM,NA 143 mEq/L (136-145)
[2018-11-13] MEDS: Estradiol 1 MG Tab PO SCH (08:08)
[2018-11-13] MEDS: Aspirin 81 MG Tab.EC PO SCH (08:09)
[2018-11-13] MEDS: Oxybutynin 5 MG Tab.ER PO SCH (08:09)
[2018-11-13] MEDS: Cholecalciferol (Vitamin D3) 25 MCG Tab PO SCH (08:09)
[2018-11-13] MEDS: metFORMIN 500 MG Tab.ER PO SCH (08:09)
[2018-11-13] MEDS: glipiZIDE 5 MG Tab.ER PO SCH (08:09)
[2018-11-13] MEDS: Multivitamin Tab PO SCH (08:10)
[2018-11-13] MEDS: Formoterol/Mometasone 200-5 MCG 8.8 GM Inhaler IH SCH (08:11)
[2018-11-13] MEDS: Warfarin 2.5 MG Tab PO SCH (12:21)
[2018-11-13 12:30] VITALS: BP 169/76; PULSE 78
--- NOTE | 2018-11-13 12:35 | PCM.DCSUM1 ---
Discharge Summary - Hospital Course Free Text/Narrative:: Patient presented to ER with complaints of left lower quadrant pain. States pain began several hours earlier but has continued to progress/worsen since that time. [place] nauseated. Had deer sausage with mustard seeds, unknown if led to pain but has history of diverticulitis and kidney stones. WBC elevated at 11.7, CRP 19.6. INR high at 3.62. CT scan of the abdomen was done, showed diverticulitis with small nonperforating abscess. Admitted and started on IV Flagyl. Did give dose of Rocephin but developed itchy hands. Placed on clear liquids Diagnosis: Stroke: No Modified [place] Scale: No Symptoms at All Modified [place] Scale Score: 0 - Discharge Data Discharge Date: 11/13/18 Discharge Disposition: Home, Self-Care 01 Condition: Fair - Discharge Diagnosis/Problem(s) (1) Abscess of sigmoid colon due to diverticulitis SNOMED Code(s): 4050764446929871 ICD Code: K57.20 - DVTRCLI OF LG INT W PERFORATION AND ABSCESS W/O BLEEDING Status: Acute Priority: High - Patient Summary/Data Complications: none Hospital Course: Patient status much improved. Did have ongoing pain for 36 hours after admission. Continued to have nausea and tenderness during that time. Was not tolerating oral intake well so IV fluids were started. After review of allergies after admit, did opt to initiate merepenum and she did tolerate that well as well as was given Flagyl. Patient is now essentially nontender with palpation. Is taking soft diet without difficulty. No further nausea. Voiding well. Has had 3 normal stools without blood. No fevers. Labs have improved. WBC stable at 9.5. CRP did peak at 20.4, today down to 14. INR stabilized at 2.77, reduced dose for now at 2.5 mg daily. Will have rechecked at clinic visit next week. discharge home on Flagyl and Bactrim. Follow up with Filemon Riddle in one week. - Patient Instructions Diet: Diabetic Diet Activity: As Tolerated - Discharge Plan *PRESCRIPTION DRUG MONITORING PROGRAM REVIEWED*: No *COPY OF PRESCRIPTION DRUG MONITORING REPORT IN PATIENT KATEY: No Prescriptions/Med Rec: metroNIDAZOLE [Flagyl] 500 mg PO Q8H #21 tab Sulfamethoxazole/Trimethoprim [Bactrim Ds Tablet] 1 each PO BID #14 tablet Warfarin [Coumadin] 2.5 mg PO DAILY@1200 #30 tablet Home Medications: Home Meds Albuterol [Proair HFA] 1 - 2 puff INH Q4H PRN 04/21/14 [History] Aspirin [Halfprin] 81 mg PO DAILY 03/09/15 [History] Cholecalciferol (Vitamin D3) [Vitamin D3] 5,000 units PO DAILY 03/09/15 [History ] Multivitamin [Multivitamins] 1 cap PO DAILY 03/09/15 [History] Estradiol 0.5 mg PO DAILY 10/28/16 [History] Montelukast Sodium 10 mg PO DAILY 10/28/16 [History] Magnesium Oxide [Magnesium] 500 mg PO DAILY 03/09/17 [History] Rosuvastatin Calcium 10 mg PO DAILY 03/09/17 [History] Fluticasone/Salmeterol [Advair 500-50] 1 inh INH BID 11/10/18 [History] Oxybutynin Chloride [Ditropan Xl] 10 mg PO DAILY 11/10/18 [History] glipiZIDE [Glipizide Xl] 10 mg PO BID 11/10/18 [History] metFORMIN [Glucophage XR] 750 mg PO BID 11/10/18 [History] Sulfamethoxazole/Trimethoprim [Bactrim Ds Tablet] 1 each PO BID #14 tablet 11/13 [Rx] Warfarin [Coumadin] 2.5 mg PO DAILY@1200 #30 tablet 11/13/18 [Rx] metroNIDAZOLE [Flagyl] 500 mg PO Q8H #21 tab 11/13/18 [Rx] Patient Handouts: Diverticulitis Forms: ED Department Discharge Referrals: Jerome Riddle PA-C [Primary Care Provider] - (Follow up with Filemon in one week , labs prior) - Discharge Summary/Plan Comment DC Time >30 min.: No - General Info Date of Service: 11/14/18 Admission Dx/Problem (Free Text: Diverticulitis Functional Status: Reports: Pain Controlled, Tolerating Diet, Ambulating - Review of Systems General: Denies: Fever, Weakness, Fatigue, Malaise HEENT: Reports: No Symptoms Pulmonary: Denies: Shortness of Breath, Cough Cardiovascular: Denies: Chest Pain, Edema, Lightheadedness Gastrointestinal: Reports: Abdominal Pain (minimal pain now). Denies: Nausea, Vomiting Genitourinary: Reports: No Symptoms Musculoskeletal: Reports: No Symptoms Skin: Reports: No Symptoms Neurological: Reports: No Symptoms - Patient Data Vitals - Most Recent: Last Vital Signs Temp 97.1 F 11/13/18 12:00 Pulse 78 11/13/18 12:00 Resp 20 11/13/18 12:00 BP 169/76 H 11/13/18 12:00 Pulse Ox 97 11/13/18 12:00 Weight - Most Recent: 194 lb I&O - Last 24 hours: Intake & Output 11/12/18 11/13/18 11/13/18 22:59 06:59 14:59 Intake Total 100 100 Balance 100 100 Lab Results - Last 24 hrs: Laboratory Results - last 24 hr 11/12/18 11/12/18 11/13/18 Range/Units 11:26 17:08 07:00 WBC 9.5 (5.0-10.0) 10^3/uL RBC 3.98 L (4.00-5.50) 10^6/uL Hgb 11.1 L (12.0-16.0) g/dL Hct 35.2 L (37.0-47.0) % MCV 88.4 (82.0-94.0) fL MCH 27.9 (27.0-32.0) pg MCHC 31.5 L (33.0-38.0) g/dL RDW Coeff of Pepper 14.9 (11.0-15.0) % Plt Count 283 (150-400) 10^3/uL Neut % (Auto) 79.3 (35-85) % Lymph % (Auto) 12.7 (10-55) % [place] % (Auto) 7.1 (0-16) % Eos % (Auto) 0.7 (0-5) % Baso % (Auto) 0.2 (0-3) % Neut # (Auto) 7.51 H (1.80-7.00) 10^3/uL Lymph # (Auto) 1.20 (1.00-4.80) 10^3/uL [place] # (Auto) 0.67 (0.00-0.80) 10^3/uL Eos # (Auto) 0.07 (0.00-0.45) 10^3/uL Baso # (Auto) 0.02 10^3/uL PT (9.7-12.3) SEC INR (0.92-1.18) Sodium (136-145) mEq/L Potassium (3.5-5.0) mEq/L Chloride (98-106) mEq/L Carbon Dioxide (21-32) mmol/L BUN (7-18) mg/dL Creatinine (0.6-1.0) mg/dL Est Cr Clr Drug Dosing mL/min Estimated GFR (MDRD) (>=60) mL/min Glucose (75-99) mg/dL POC Glucose 194 H 153 H (75-105) mg/dl Calcium (8.4-10.1) mg/dL C-Reactive Protein (0.2-0.8) mg/dL 11/13/18 11/13/18 11/13/18 Range/Units 07:00 07:00 07:57 WBC (5.0-10.0) 10^3/uL RBC (4.00-5.50) 10^6/uL Hgb (12.0-16.0) g/dL Hct (37.0-47.0) % MCV (82.0-94.0) fL MCH (27.0-32.0) pg MCHC (33.0-38.0) g/dL RDW Coeff of Pepper (11.0-15.0) % Plt Count (150-400) 10^3/uL Neut % (Auto) (35-85) % Lymph % (Auto) (10-55) % [place] % (Auto) (0-16) % Eos % (Auto) (0-5) % Baso % (Auto) (0-3) % Neut # (Auto) (1.80-7.00) 10^3/uL Lymph # (Auto) (1.00-4.80) 10^3/uL [place] # (Auto) (0.00-0.80) 10^3/uL Eos # (Auto) (0.00-0.45) 10^3/uL Baso # (Auto) 10^3/uL PT 18.9 H (9.7-12.3) SEC INR 1.90 H (0.92-1.18) Sodium 143 (136-145) mEq/L Potassium 3.8 (3.5-5.0) mEq/L Chloride 108 H (98-106) mEq/L Carbon Dioxide 28 (21-32) mmol/L BUN 10 (7-18) mg/dL Creatinine 0.7 (0.6-1.0) mg/dL Est Cr Clr Drug Dosing 56.61 mL/min Estimated GFR (MDRD) > 60 (>=60) mL/min Glucose 52 L D (75-99) mg/dL POC Glucose 40 L* (75-105) mg/dl Calcium 8.3 L (8.4-10.1) mg/dL C-Reactive Protein 14.4 H (0.2-0.8) mg/dL 11/13/ Range/Units 12:07 WBC (5.0-10.0) 10^3/uL RBC (4.00-5.50) 10^6/uL Hgb (12.0-16.0) g/dL Hct (37.0-47.0) % MCV (82.0-94.0) fL MCH (27.0-32.0) pg MCHC (33.0-38.0) g/dL RDW Coeff of Pepper (11.0-15.0) % Plt Count (150-400) 10^3/uL Neut % (Auto) (35-85) % Lymph % (Auto) (10-55) % [place] % (Auto) (0-16) % Eos % (Auto) (0-5) % Baso % (Auto) (0-3) % Neut # (Auto) (1.80-7.00) 10^3/uL Lymph # (Auto) (1.00-4.80) 10^3/uL [place] # (Auto) (0.00-0.80) 10^3/uL Eos # (Auto) (0.00-0.45) 10^3/uL Baso # (Auto) 10^3/uL PT (9.7-12.3) SEC INR (0.92-1.18) Sodium (136-145) mEq/L Potassium (3.5-5.0) mEq/L Chloride (98-106) mEq/L Carbon Dioxide (21-32) mmol/L BUN (7-18) mg/dL Creatinine (0.6-1.0) mg/dL Est Cr Clr Drug Dosing mL/min Estimated GFR (MDRD) (>=60) mL/min Glucose (75-99) mg/dL POC Glucose 153 H (75-105) mg/dl Calcium (8.4-10.1) mg/dL C-Reactive Protein (0.2-0.8) mg/dL Med Orders - Current: Current Medications Acetaminophen (Tylenol) 650 mg PO Q4H PRN PRN Reason: Fever Last Admin: 11/12/18 23:09 Dose: 650 mg Albuterol (Ventolin Hfa) 1 - 2 gm INH Q4H PRN PRN Reason: Allergies Aspirin (Halfprin) 81 mg PO DAILY [facility] Last Admin: 11/13/18 08:09 Dose: 81 mg Cholecalciferol (Vitamin D3) 125 mcg PO DAILY [facility] Last Admin: 11/13/18 08:09 Dose: 125 mcg Estradiol (Estradiol) 0.5 mg PO DAILY [facility] Last Admin: 11/13/18 08:08 Dose: 0.5 mg Glipizide (Glucotrol Xl) 10 mg PO BID [facility] Last Admin: 11/13/18 08:09 Dose: 10 mg Metronidazole 500 mg/ Premix 100 mls @ 100 mls/hr IV Q8H [facility] Last Admin: 11/13/18 12:21 Dose: 100 mls/hr Meropenem 1 gm/ Sodium (Chloride) 60 mls @ 120 mls/hr IV BID [facility] Last Admin: 11/13/18 08:11 Dose: 120 mls/hr Ibuprofen (Motrin) 400 mg PO Q6H PRN PRN Reason: Fever Last Admin: 11/11/18 19:31 Dose: 400 mg Magnesium Oxide (Magnesium Oxide) 500 mg PO DAILY [facility] Last Admin: 11/13/18 08:10 Dose: 500 mg Metformin HCl (Glucophage Xr) 750 mg PO BID [facility] Last Admin: 11/13/18 08:09 Dose: 750 mg Mometasone Furoate/Formoterol Fumar (Dulera 200-5 Mcg) 2 puff IH BID [facility] Last Admin: 11/13/18 08:11 Dose: 2 puff Montelukast Sodium (Singulair) 10 mg PO BEDTIME [facility] Last Admin: 11/12/18 19:36 Dose: 10 mg Morphine Sulfate (Morphine) 2 mg IVPUSH Q2H PRN PRN Reason: Pain (severe 7-10) Multivitamins/Minerals/Vitamin C (Tab-A-Anthony) 1 tab PO DAILY [facility] Last Admin: 11/13/18 08:10 Dose: 1 tab Ondansetron HCl (Zofran) 4 mg IV Q6H PRN PRN Reason: Nausea/Vomiting Oxybutynin Chloride (Oxybutynin Er) 10 mg PO DAILY [facility] Last Admin: 11/13/18 08:09 Dose: 10 mg Simvastatin (Zocor) 40 mg PO BEDTIME [facility] Last Admin: 11/12/18 19:36 Dose: 40 mg Warfarin Sodium (Coumadin) 2.5 mg PO DAILY@1200 [facility] Last Admin: 11/13/18 12:21 Dose: 2.5 mg Discontinued Medications Ceftriaxone Sodium (Rocephin) 1 gm IVPUSH Q24H [facility] Last Admin: 11/10/18 04:56 Dose: 1 gm Diphenhydramine HCl (Benadryl) 12.5 mg IVPUSH ONETIME ONE Stop: 11/10/18 04:57 Last Admin: 11/10/18 05:10 Dose: 12.5 mg Sodium Chloride (Normal Saline) 500 mls @ 500 mls/hr IV .BOLUS [facility] Last Admin: 11/10/18 02:13 Dose: 500 mls/hr Sodium Chloride (Normal Saline) 1,000 mls @ 75 mls/hr IV ASDIRECTED [facility] Last Admin: 11/11/18 18:50 Dose: 75 mls/hr Iopamidol (Isovue-370 (76%)) 160 ml IV ONETIME ONE Stop: 11/10/18 02:15 Last Admin: 11/10/18 02:29 Dose: 120 ml Morphine Sulfate (Morphine) 2 mg IVPUSH ONETIME ONE Stop: 11/10/18 01:58 Last Admin: 11/10/18 02:07 Dose: 2 mg Non-Formulary Medication (Warfarin) 7.5 mg PO DIAZ [facility] Ondansetron HCl (Zofran) 4 mg IVPUSH NOW STA Stop: 11/10/18 01:58 Last Admin: 11/10/18 02:07 Dose: 4 mg Warfarin Sodium (Coumadin) 5 mg PO MOTUWETHFR [facility] Last Admin: 11/10/18 19:18 Dose: Not Given Warfarin Sodium (Coumadin) 7.5 mg PO SuSa@1200 [facility] Warfarin Sodium (Coumadin) 5 mg PO DAILY@1200 [facility] Last Admin: 11/10/18 13:24 Dose: 5 mg - Exam General: Reports: Alert, Oriented HEENT: Reports: Mucous Membr. Moist/[place] Neck: Reports: Supple Lungs: Reports: Clear to Auscultation, Normal Respiratory Effort Cardiovascular: Reports: Regular Rate, Regular Rhythm GI/Abdominal Exam: Normal Bowel Sounds, Soft, Tender (minimally tender with deep palpation) Extremities: Normal Inspection, No Pedal Edema Skin: Reports: Warm, Dry Neurological: Reports: No New Focal Deficit *Q Meaningful Use (DIS) - VTE *Q VTE Anticoagulation Contraindications: Alternative [place] Request PT
[2018-11-15] MEDS ORDERED: Warfarin 2.5 MG Tab PO SCH (12:00)
[2018-11-16] MEDS ORDERED: WARFARIN 7.5 MG PO SCH (03:24)
== END 2018-11-13 14:10 | disposition home or self-care (01) | DRG 392 ==
LOC: CC.ED 01:33 → CC.MS 03:14 → UNDOADMIN 03:15
PROVIDERS: ADMIT Nurse Practitioner; ATTEND Family Medicine
DX: K57.20 Diverticulitis of large intestine with perforation and abscess without bleeding (principal); H54.7 Unspecified visual loss; I48.91 Unspecified atrial fibrillation; E11.9 Type 2 diabetes mellitus without complications; M81.0 Age-related osteoporosis without current pathological fracture; Z90.49 Acquired absence of other specified parts of digestive tract; Z87.442 Personal history of urinary calculi; Z88.0 Allergy status to penicillin; Z88.5 Allergy status to narcotic agent; Z88.1 Allergy status to other antibiotic agents; Z88.8 Allergy status to other drugs, medicaments and biological substances; Z79.01 Long term (current) use of anticoagulants; Z79.84 Long term (current) use of oral hypoglycemic drugs; Z79.82 Long term (current) use of aspirin; Z79.890 Hormone replacement therapy; Z79.899 Other long term (current) drug therapy
CPT/HCPCS: 36415; 74177; 80053; 81003; 82150; 83690; 85025; 85610; 96361; 96374; 96375; 99285; J2270; J2405; J7040; Q9967; 80048; 82962; 86140; 94640; A4217; A9270-GY; J0696; J1200; J2185; J3490; J7030; J7050

== ENCOUNTER 2023-07-10 09:21 | Day surgery (SDC) | payer MEDICARE ==
[2023-07-10 09:53] VITALS: BP 135/67; PULSE 71
[2023-07-10] MEDS: Lidocaine 1% 30 ML SDV SUBCUT ONE ×2 (11:06→11:31)
== END 2023-07-10 12:20 | disposition home or self-care (01) ==
LOC: CC.SDS 09:21
PROVIDERS: ATTEND Family Medicine
DX: I83.813 Varicose veins of bilateral lower extremities with pain (principal); I87.2 Venous insufficiency (chronic) (peripheral)
CPT/HCPCS: C1888; J3490

== ENCOUNTER 2024-09-30 10:49 | Emergency (ER) | payer MEDICARE ==
[2024-09-30] MEDS: Magnesium Sulfate 2 GM/50 mL 2 GM in Premix Bag 1 BAG IV ONE (11:03)
[2024-09-30] MEDS: Heparin Sodium 5,000 Units/ML Vial IVPUSH ONE (12:58)
[2024-09-30] MEDS: Heparin Sodium/0.45% NaCl 25,000 UNITS/250 ML BAG IV SCH (13:02)
[2024-09-30 13:11] VITALS: PULSE 70
[2024-09-30 13:13] LABS: INR 1.01 (0.92-1.18); PROTHROMBIN TIME 10.5 SEC (9.3-11.3); PTT,PARTIAL THROMBOPLSTIN TIME 28.5 SEC (20.0-30.0)
[2024-09-30 14:15] VITALS: BP 145/63
== END 2024-09-30 13:50 ==
LOC: CC.ED 10:49
DX: I21.4 Non-ST elevation (NSTEMI) myocardial infarction (principal); I48.91 Unspecified atrial fibrillation; E11.9 Type 2 diabetes mellitus without complications; Z88.0 Allergy status to penicillin; Z88.5 Allergy status to narcotic agent; Z79.51 Long term (current) use of inhaled steroids; Z79.82 Long term (current) use of aspirin; Z79.84 Long term (current) use of oral hypoglycemic drugs; Z79.01 Long term (current) use of anticoagulants; Z79.899 Other long term (current) drug therapy; Z90.49 Acquired absence of other specified parts of digestive tract
CPT/HCPCS: 36415; 84484; 85610; 85730; 93005; 93010; 96365; 96366; 96367; 96376; 99284; 99285-25; J1644; J3475

== ENCOUNTER 2024-10-09 13:13 | Inpatient (IN) | payer MEDICARE ==
[2024-10-09] MEDS ORDERED: Ondansetron 4 MG/2 ML SDV IV PRN (13:16)
[2024-10-09] MEDS ORDERED: Ondansetron 4 MG Tab.DIS PO PRN (13:16)
[2024-10-09] MEDS ORDERED: Sodium Chloride 0.9% 10 ML Syringe FLUSH PRN (13:16)
[2024-10-09] MEDS ORDERED: Albuterol 0.083% 2.5 MG/3 ML Neb Soln INH PRN (14:48)
[2024-10-09] MEDS: metFORMIN 500 MG Tab PO SCH (18:38)
[2024-10-09] MEDS: glipiZIDE 5 MG Tab.ER PO SCH (18:38)
[2024-10-09] MEDS: Pantoprazole 40 MG Vial IVPUSH SCH (18:38)
[2024-10-09] MEDS: Apixaban 5 MG Tab PO SCH (19:49)
[2024-10-09] MEDS: Ferrous Sulfate 324 MG Tab.EC PO SCH (19:49)
[2024-10-09 22:30] LABS: APPEARANCE,URINE CLEAR (CLEAR); BILIRUBIN,URINE NEGATIVE (NEGATIVE); COLOR,URINE YELLOW (YELLOW); GLUCOSE,URINE NEGATIVE (NEGATIVE); KETONES,URINE TRACE mg/dL (NEGATIVE); LEUKOCYTE ESTERASE,URINE NEGATIVE (NEGATIVE); NITRITE,URINE NEGATIVE (NEGATIVE); OCCULT BLOOD,URINE NEGATIVE (NEGATIVE); PH,URINE 6.5 (4.5-8.0); PROTEIN,URINE NEGATIVE (NEGATIVE); UROBILINOGEN,URINE 0.2 EU/dL (0.2-1.0)
[2024-10-10] MEDS: Montelukast 10 MG Tab PO SCH (07:32)
[2024-10-10] MEDS: Multivitamin Tab PO SCH (07:32)
[2024-10-10] MEDS: Magnesium Oxide 400 MG Tab PO SCH (07:32)
[2024-10-10] MEDS: Lisinopril 5 MG Tab PO SCH (07:35)
[2024-10-10] MEDS: Cholecalciferol (Vitamin D3) 5,000 UNIT Tab PO SCH (07:35)
[2024-10-10] MEDS: Estradiol 1 MG Tab PO SCH (07:36)
[2024-10-10 10:00] LABS: BASOPHILS ABSOLUTE AUTO 0.04 10^3/uL (0.00-0.50); BASOPHILS PERCENT AUTO 0.7 % (0-1); EOSINOPHILS ABSOLUTE AUTO 0.16 10^3/uL (0.00-1.50); EOSINOPHILS PERCENT AUTO 2.7 % (0-6); HEMOGLOBIN 8.2 g/dL (12.0-16.0); IMMATURE GRAN ABSOLUTE AUTO 0.03 10^3/uL (0.00-0.49); IMMATURE GRAN PERCENT AUTO 0.5 % (0.0-4.9); LYMPHOCYTES ABSOLUTE AUTO 1.09 10^3/uL (0.60-5.00); LYMPHOCYTES PERCENT AUTO 18.4 % (24-44); MEAN CORPUSCULAR HEMOGLOBIN 23.6 pg (27.0-32.0); MEAN CORPUSCULAR HGB CONC 29.3 g/dL (32.0-36.0); MEAN CORPUSCULAR VOLUME 80.5 fL (83.0-97.0); MONOCYTES ABSOLUTE AUTO 0.46 10^3/uL (0.00-1.50); MONOCYTES PERCENT AUTO 7.7 % (0-10); NEUTROPHILS ABSOLUTE AUTO 4.16 x10^3/uL (1.80-8.00); PLATELET COUNT,PLT 328 10^3/uL (150-400); RED BLOOD CELL COUNT 3.48 x10^6/uL (4.00-5.50); WHITE BLOOD CELL COUNT,WBC 5.9 10^3/uL (4.0-11.0)
[2024-10-10 10:19] LABS: ALBUMIN 3.4 g/dL (3.4-5.0); BILIRUBIN TOTAL 0.3 mg/dL (0.0-1.0); C-REACTIVE PROTEIN 0.62 mg/dL (<=0.50); CALCIUM 9.5 mg/dL (8.4-10.1); EST CRCL DRUG DOSING (CG) 32.77 mL/min; POTASSIUM,K 5.4 mEq/L (3.5-5.0); PROTEIN TOTAL,TP 6.6 g/dL (6.4-8.2)
[2024-10-10] MEDS: Polyethylene Glycol 3350 Powder 17 GM Packet PO ONE (11:43)
[2024-10-10] MEDS: Acetaminophen 325 MG Tab PO PRN (16:39)
[2024-10-10] MEDS: Escitalopram 10 MG Tab PO SCH (16:52)
[2024-10-10] MEDS: Melatonin 3 MG Tab PO PRN (22:02)
[2024-10-11 08:18] LABS: ALBUMIN 3.1 g/dL (3.4-5.0); BILIRUBIN TOTAL 0.2 mg/dL (0.0-1.0); CALCIUM 9.3 mg/dL (8.4-10.1); CREATININE 1.1 mg/dL (0.6-1.0); EST CRCL DRUG DOSING (CG) 29.79 mL/min; POTASSIUM,K 5.1 mEq/L (3.5-5.0)
[2024-10-11 08:19] LABS: BASOPHILS ABSOLUTE AUTO 0.03 10^3/uL (0.00-0.50); BASOPHILS PERCENT AUTO 0.6 % (0-1); EOSINOPHILS ABSOLUTE AUTO 0.18 10^3/uL (0.00-1.50); EOSINOPHILS PERCENT AUTO 3.5 % (0-6); HEMATOCRIT 26.5 % (37.0-47.0); HEMOGLOBIN 7.8 g/dL (12.0-16.0); IMMATURE GRAN ABSOLUTE AUTO 0.02 10^3/uL (0.00-0.49); IMMATURE GRAN PERCENT AUTO 0.4 % (0.0-4.9); LYMPHOCYTES ABSOLUTE AUTO 1.09 10^3/uL (0.60-5.00); MEAN CORPUSCULAR HEMOGLOBIN 23.7 pg (27.0-32.0); MEAN CORPUSCULAR HGB CONC 29.4 g/dL (32.0-36.0); MEAN CORPUSCULAR VOLUME 80.5 fL (83.0-97.0); MONOCYTES ABSOLUTE AUTO 0.47 10^3/uL (0.00-1.50); MONOCYTES PERCENT AUTO 9.1 % (0-10); NEUTROPHILS ABSOLUTE AUTO 3.39 x10^3/uL (1.80-8.00); NEUTROPHILS PERCENT AUTO 65.4 % (41-71); PLATELET COUNT,PLT 332 10^3/uL (150-400); RED BLOOD CELL COUNT 3.29 x10^6/uL (4.00-5.50); WHITE BLOOD CELL COUNT,WBC 5.2 10^3/uL (4.0-11.0)
[2024-10-11 18:53] VITALS: BP 115/42; PULSE 69
== END 2024-10-11 14:10 | disposition home or self-care (01) | DRG 812 ==
LOC: UNDOADMOB 13:13 → CC.MS 13:13 → OBSVTOIN 10-10 15:49
PROVIDERS: ADMIT Physician Assistant Medical; ATTEND Physician Assistant Medical
DX: D50.9 Iron deficiency anemia, unspecified (principal); D64.9 Anemia, unspecified; R53.1 Weakness; H54.7 Unspecified visual loss; Z88.5 Allergy status to narcotic agent; I48.91 Unspecified atrial fibrillation; M81.0 Age-related osteoporosis without current pathological fracture; E11.9 Type 2 diabetes mellitus without complications; Z88.8 Allergy status to other drugs, medicaments and biological substances; Z87.01 Personal history of pneumonia (recurrent); Z88.1 Allergy status to other antibiotic agents; Z88.6 Allergy status to analgesic agent; Z88.0 Allergy status to penicillin; Z79.52 Long term (current) use of systemic steroids; Z79.82 Long term (current) use of aspirin; Z79.899 Other long term (current) drug therapy; Z79.84 Long term (current) use of oral hypoglycemic drugs; Z79.01 Long term (current) use of anticoagulants; Z90.49 Acquired absence of other specified parts of digestive tract
CPT/HCPCS: 36415; 80053; 81003; 82728; 83540; 83550; 85025; 86140; 99223; A9270 ×15; J2470; 80048; 99233; 99239

== ENCOUNTER → 2024-10-14 | Day surgery (SDC) | payer MEDICARE ==
[~2024-10-14] MED LIST: Lactated Ringers 1,000 ML IV SCH
[2024-10-14] MEDS: Midazolam 1 MG/ML 2 ML SDV IVPUSH ONE ×2 (09:11→09:21)
[2024-10-14] MEDS: Meperidine 50 MG/ML Vial IVPUSH SCH (09:11)
[2024-10-14 11:36] VITALS: BP 120/44; PULSE 84
== END ==
LOC: CC.SDS 08:03
PROVIDERS: ATTEND Family Medicine
DX: K31.89 Other diseases of stomach and duodenum (principal); K25.9 Gastric ulcer, unspecified as acute or chronic, without hemorrhage or perforation; K57.30 Diverticulosis of large intestine without perforation or abscess without bleeding; K44.9 Diaphragmatic hernia without obstruction or gangrene; R53.1 Weakness; D50.9 Iron deficiency anemia, unspecified; Z79.84 Long term (current) use of oral hypoglycemic drugs; Z79.899 Other long term (current) drug therapy
CPT/HCPCS: 43239; 45330; 87081; J2175; J2250; 88305